=== PATIENT | male | born 1960 | race Caucasian/White ===

== ENCOUNTER 2016-08-16 12:30 | Emergency (ER) | payer MEDICAID ==
[~2016-08-16] VITALS: Ht 175.3 cm; Wt 84.4 kg
[2016-08-16 12:46] VITALS: BP 140/76
[2016-08-16 13:34] LABS: HEMATOCRIT 46.1 % (36-52); HEMOGLOBIN 15.1 g/dL (12.0-18.0); MEAN CORPUSCULAR HEMOGLOBIN 30 pg (27-31); MEAN CORPUSCULAR HGB CONC 33 g/dL (33-37); MEAN CORPUSCULAR VOLUME 91 fL (80-94); PLATELET COUNT (AUTO) 257 K/uL (140-450); RED BLOOD CELL COUNT(AUTO) 5.07 MIL/uL (4.20-6.10); RED CELL DISTRIBUTION WIDTH 13.8 % (11.6-13.7); WHITE BLOOD COUNT (AUTO) 8.7 K/uL (4.8-10.8)
[2016-08-16 13:50] LABS: ALBUMIN 3.3 g/dL (3.4-5.0); ANION GAP 12.5 (8-16); CALCIUM 8.2 mg/dL (8.5-10.1); CARBON DIOXIDE 28.9 mmol/L (21-32); POTASSIUM 4.4 mmol/L (3.5-5.1); TOTAL BILIRUBIN 0.5 mg/dL (0.0-1.0); TOTAL PROTEIN, SERUM 7.6 g/dL (6.4-8.2)
[2016-08-16 13:51] LABS: APPEARANCE,URINE CLEAR (CLEAR); BILIRUBIN,URINE NEGATIVE (NEGATIVE); BLOOD, URINE NEGATIVE (NEGATIVE); COLOR,URINE YELLOW (YELLOW); LEUKOCYTE ESTERASE ,URINE NEGATIVE (NEGATIVE); NITRITE, URINE NEGATIVE (NEGATIVE); PH,URINE 6.5 (5.0-9.0); PROTEIN,URINE NEGATIVE (NEGATIVE); UGLUCOSE NEGATIVE (NEGATIVE); UROBILINOGEN,URINE 0.2 EU/dL (0.2 - 1)
[2016-08-16 14:23] LABS: EOSINOPHILS % (MANUAL) 2 % (0-4); LYMPHOCYTES % (MANUAL) 22 % (20-46); MONOCYTES % (MANUAL) 8 % (5-12); NEUTROPHILS % (MANUAL) 68 (43-65); PLATELET ESTIMATE ADEQUATE
--- NOTE | 2016-08-16 14:56 | NUR ---
PT TO BED 3
--- NOTE | 2016-08-16 15:00 | NUR ---
PATIENT PRESENTS TO ED WITH C/O LEFT TESTICULAR PAIN , SWELLING WITH DECREASE OF URINE FLOW;DENIES INJURY, DENIES PURULENT DRAINAGE FROM MEATUS;HX OF HTN AND HERNIA REPAIR;RX OF NON COMPLIANT . PT STATES HE FEELS NAUSEATED SOMETIMES BUT DENIES V/D; SKIN IS PINK/WARM/DRY; AAOX4 WITH EVEN AND STEADY GAIT; LUNGS CLEAR BL; HR EVEN AND REGULAR; PT DENIES ANY FEVER, CP, SOB, OR COUGH AT THIS TIME; PATIENT STATES PAIN OF 5/10 LT TESTICULAR PAIN AT THIS TIME; PATIENT POSITIONED FOR COMFORT; HOB ELEVATED; BEDRAILS UP X2; BED DOWN. ALL MONITORS IN PLACED.
--- NOTE | 2016-08-16 16:05 | NUR ---
PT SLEEPING;ALL MONITORS IN PLACED;NO ACUTE DISTRESS NOTED;WILL CONTINUE TO MONITOR PT.
[2016-08-16] MEDS ORDERED: predniSONE 20 MG TAB PO ONE (16:40)
[2016-08-16] MEDS ORDERED: LEVOFLOXACIN 500 MG TAB PO ONE (16:40)
--- NOTE | 2016-08-16 16:57 | NUR ---
PT RESTING ON BED;ALL MONITORS IN PLACED;NO ACUTE DISTRESS NOTED;WILL CONTINUE TO MONITOR PT.
--- NOTE | 2016-08-16 17:18 | NUR ---
PT AMBULATED TO THE RESTROOM.
--- NOTE | 2016-08-16 17:47 | NUR ---
Patient discharged with v/s stable. Written and verbal after care instructions given and explained. Patient alert, oriented and verbalized understanding of instructions. Ambulatory with steady gait. All questions addressed prior to discharge. ID band removed. Patient advised to follow up with PMD. Rx of PREDNISONE,FLOMAX AND CIPRO given. Patient educated on indication of medication including possible reaction and side effects. Opportunity to ask questions provided and answered.
[2016-08-16 17:48] VITALS: BP 136/77
== END 2016-08-16 17:47 | disposition home or self-care (01) ==
LOC: MED 12:30
DX: N40.0 Benign prostatic hyperplasia without lower urinary tract symptoms (principal); N45.1 Epididymitis; I10 Essential (primary) hypertension; Z98.890 Other specified postprocedural states
CPT/HCPCS: 36415; 80053; 81003; 85025; 99284; J7512

== ENCOUNTER 2017-12-17 18:11 | Emergency (ER) | payer MEDICAID ==
[~2017-12-17] VITALS: Ht 172.7 cm; Wt 90.7 kg
[2017-12-17 18:14] VITALS: BP 179/103
--- NOTE | 2017-12-17 18:19 | NUR ---
PT AMBULATES TO BED 11
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
--- NOTE | 2017-12-17 18:26 | NUR ---
PA AT BEDSIDE.
[2017-12-17] MEDS ORDERED: KETOROLAC 60 MG/2 ML VIAL IM ONE (18:35)
[2017-12-17] MEDS ORDERED: DIAZEPAM 5 MG TAB PO ONE (18:35)
--- NOTE | 2017-12-17 19:15 | NUR ---
RECEIVED REPORT FROM AM NURSE. PT RESTING IN BED COMFORTABLY, RR EVEN AND UNLABORED. ALL NEEDS MET.
[2017-12-17 19:54] VITALS: BP 149/93
== END 2017-12-17 19:54 | disposition home or self-care (01) ==
LOC: MED 18:11
DX: S16.1XXA Strain of muscle, fascia and tendon at neck level, initial encounter (principal); I10 Essential (primary) hypertension; V89.2XXA Person injured in unspecified motor-vehicle accident, traffic, initial encounter; Y93.89 Activity, other specified; Y92.89 Other specified places as the place of occurrence of the external cause; Y99.8 Other external cause status
CPT/HCPCS: 96372; 99283; J1885

== ENCOUNTER 2018-01-20 16:32 | Emergency (ER) | payer MEDICAID, OTHER ==
[~2018-01-20] VITALS: Ht 172.7 cm; Wt 86.2 kg
--- NOTE | 2018-01-20 16:41 | NUR ---
PT AMBULATED TO ER BED 04
[2018-01-20 16:44] VITALS: BP 113/65
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
--- NOTE | 2018-01-20 17:09 | NUR ---
Patient being evaluated by DR DOUGLASS at bedside.
--- NOTE | 2018-01-20 17:22 | NUR ---
PT. TAKEN TO CT.
--- NOTE | 2018-01-20 17:31 | NUR ---
PT RETURNED FROM CT.
--- NOTE | 2018-01-20 18:10 | NUR ---
Patient being reevaluated by DR DOUGLASS at bedside.
[2018-01-20 18:30] VITALS: BP 118/67
--- NOTE | 2018-01-20 18:30 | NUR ---
Patient discharged with v/s stable. Written and verbal after care instructions given and explained. Patient verbalized understanding. Ambulatory with steady gait. All questions addressed prior to discharge. Advised to follow up with PMD.
== END 2018-01-20 18:30 | disposition home or self-care (01) ==
LOC: MED 16:32
DX: R26.0 Ataxic gait (principal); R05 Cough; I10 Essential (primary) hypertension; F12.10 Cannabis abuse, uncomplicated
CPT/HCPCS: 70450; 99284

== ENCOUNTER 2018-02-01 23:08 | Emergency (ER) | payer OTHER ==
[~2018-02-01] VITALS: Ht 172.7 cm; Wt 86.2 kg
[2018-02-01 23:10] VITALS: BP 138/76
--- NOTE | 2018-02-01 23:10 | NUR ---
TO BED # 3 AMBULATORY, REPORT GIVEN TO FLETCHER TOBIN
--- NOTE | 2018-02-01 23:10 | NUR ---
Andres shah in [facility] - 02/01/18 at 2316 by CRAIG TO BED # 9 AMBULATORY, REPORT GIVEN TO BONNIE TOBIN
[2018-02-01] MEDS ORDERED: HYDROcodone/APAP 5/325 MG 1 TAB TAB PO ONE (23:20)
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
--- NOTE | 2018-02-01 23:45 | NUR ---
LONG FINGER SPLINT APPLIED TO PT R HAND 4TH FINGER. +CSM
[2018-02-01 23:47] VITALS: BP 138/76
== END 2018-02-01 23:47 | disposition home or self-care (01) ==
LOC: MED 23:08
DX: S63.284A Dislocation of proximal interphalangeal joint of right ring finger, initial encounter (principal); I10 Essential (primary) hypertension; W20.8XXA Other cause of strike by thrown, projected or falling object, initial encounter; Y93.89 Activity, other specified; Y92.89 Other specified places as the place of occurrence of the external cause; Y99.8 Other external cause status
CPT/HCPCS: 26770; 73140; 99284; Q0092

== ENCOUNTER 2018-05-21 10:27 | Emergency (ER) | payer OTHER ==
[~2018-05-21] VITALS: Ht 172.7 cm; Wt 83.5 kg
[2018-05-21 10:36] VITALS: BP 136/79
--- NOTE | 2018-05-21 10:39 | NUR ---
Patient ambulated to bed 5. RN evaluating patient at bedside.
--- NOTE | 2018-05-21 10:42 | NUR ---
58 y male bib self c/o left rib cage s/p fell 2 weeks ago. pt states he fell while standing on his porch and was trying to balance his fall but hit his left rib cage. denies loc. per pt, when lying flat on back felt severe pain. -swelling, -redness, -ecchymosis at site. pain currently aching /10. -n/v. no other complaints. bed is down, locked, bed rail x1, ermd notified. hx denies
--- NOTE | 2018-05-21 10:45 | NUR ---
pt being taken to rad
--- NOTE | 2018-05-21 10:54 | NUR ---
Patient returned from XRAY. RN re-evaluating patient at bedside.
[2018-05-21 11:57] VITALS: BP 132/78
--- NOTE | 2018-05-21 11:57 | NUR ---
Patient discharged with v/s stable. Written and verbal after care instructions given and explained. Patient alert, oriented and verbalized understanding of instructions. Ambulatory with steady gait. All questions addressed prior to discharge. ID band removed. Patient advised to follow up with PMD. Rx of lidocaine patch given. Patient educated on indication of medication including possible reaction and side effects. Opportunity to ask questions provided and answered.
== END 2018-05-21 11:57 | disposition home or self-care (01) ==
LOC: MED 10:27
DX: S22.32XA Fracture of one rib, left side, initial encounter for closed fracture (principal); W19.XXXA Unspecified fall, initial encounter; Y93.89 Activity, other specified; Y92.89 Other specified places as the place of occurrence of the external cause; Y99.8 Other external cause status
CPT/HCPCS: 71100; 99283

== ENCOUNTER 2018-12-31 21:23 | Emergency (ER) | payer OTHER ==
[~2018-12-31] VITALS: Ht 172.7 cm; Wt 90.7 kg
[2018-12-31 22:00] VITALS: BP 141/78
[2019-01-01 00:40] LABS: ANION GAP 11.8 (8-16); CARBON DIOXIDE 28.9 mmol/L (21-32); CREATININE 0.9 mg/dL (0.7-1.3); POTASSIUM 3.7 mmol/L (3.5-5.1)
[2019-01-01 00:47] LABS: ALBUMIN 3.6 g/dL (3.4-5.0); TOTAL BILIRUBIN 0.6 mg/dL (0.0-1.0)
[2019-01-01 01:14] VITALS: BP 141/78
== END 2019-01-01 01:14 | disposition home or self-care (01) ==
LOC: MED 21:23
DX: R60.0 Localized edema (principal); Z87.891 Personal history of nicotine dependence
CPT/HCPCS: 36415; 71045; 73630; 80053; 83880; 84484; 99284

== ENCOUNTER 2019-11-26 01:29 | Emergency (ER) | payer OTHER ==
[~2019-11-26] VITALS: Ht 172.7 cm; Wt 90.7 kg
--- NOTE | 2019-11-26 01:40 | NUR ---
PT AMBULATED TO BED 9 WITH STEADY GAIT
[2019-11-26 01:42] VITALS: BP 153/60
--- NOTE | 2019-11-26 01:55 | NUR ---
RECEIVED PATIENT IN ROOM 9, AMBULATORY WITH C/O BILATERAL FOOT SWELLING AND DIFFICULTY BREATHING X 1 YEAR. HAS H/O HTN BUT HAS TAKEN NO MEDICATIONS X 1 YEAR. (+) ACCESSORY MUSCLE USE. PT IS TACHYPNEIC. LUNGS HAVE INSPIRATORY AND EXPIRATORY WHEEZES NOTED ANTERIORLY. PT APPEARS AGITATED AND IS RESTLESS. SPEAKS IN CHOPPY SENTENCES. 4+ PITTING EDEMA IS NOTED BILATERAL ANKLES AND FEET. PMH : HTN NKDA
[2019-11-26] MEDS ORDERED: ALBUTEROL SULFATE/IPRATROPIU 3 ML SOL IH ONE (02:00)
--- NOTE | 2019-11-26 02:02 | NUR ---
PREPARING TO ESTABLISH VASCULAR ACCESS, PT BECOMES INCREASINGLY AGITATED. "THIS IS NOT GOING TO WORK, ITS JUST NOT GOING TO WORK. I FEEL CLAUSTROPHOBIC " "IM GOING TO WALK OUT OF HERE, IM SO THIRSTY, I NEED SOMETHING TO DRINK NOW" SMALL AMOUNT OF ICE CHIPS GIVEN.
--- NOTE | 2019-11-26 02:10 | NUR ---
RT AT BEDSIDE NITIATING R.T. PT IS INCREASINGLY AGITATED.
[2019-11-26 02:13] VITALS: BP 151/82
--- NOTE | 2019-11-26 02:13 | NUR ---
PATIENT ELOPED FROM FACILITY. DISCHARGE INSTRUCTIONS NOT GIVEN TO PATIENT. DR. ALANIS NOTIFIED. ARM BAND REMOVED
--- NOTE | 2019-11-26 02:13 | NUR ---
PT RIPPED EKG LEADS, PULSE OX, AND MASK OFF AND SAID "I'M LEAVING". ARM BAND REMOVED, PT ELOPED
== END 2019-11-26 02:13 | disposition left against medical advice (07) ==
LOC: MED 01:29
DX: R03.0 Elevated blood-pressure reading, without diagnosis of hypertension (principal); Z53.21 Procedure and treatment not carried out due to patient leaving prior to being seen by health care provider
CPT/HCPCS: 94640; 99283